=== PATIENT | male | born 1980 | race Two or more races ===

== ENCOUNTER 2021-06-08 12:04 | Emergency (ER) | payer OTHER ==
[~2021-06-08] VITALS: Ht 185.4 cm; Wt 82.0 kg
[2021-06-08 13:11] LABS: BASOPHILS % 0.5 % (0.0-2.0); CHLORIDE 112 mEq/L (98-107); EOSINOPHILS % 0.7 % (0.0-5.0); HEMATOCRIT. 42.9 % (42.0-52.0); HEMOGLOBIN. 14.9 g/dL (14.0-18.0); LYMPHOCYTES % 12.8 % (20.0-50.0); MEAN CORPUSCULAR HEMOGLOBIN 31.8 pg (28.0-32.0); MEAN CORPUSCULAR VOLUME 91.3 fL (80.0-94.0); MEAN PLATELET VOLUME 7.6 fl (7.4-10.4); MONOCYTES % 6.2 % (2.0-8.0); NEUTROPHILS % 79.8 % (40.0-76.0); PLATELET 226 x1000/uL (130-400); RED CELL DISTRIBUTION WIDTH 13.3 % (11.6-14.6)
[2021-06-08 13:17] LABS: ETHANOL BLOOD < 10 mg/dL
[2021-06-08 15:00] VITALS: BP 119/58
== END 2021-06-08 15:45 | disposition home or self-care (01) ==
LOC: ER 12:04
DX: R55 Syncope and collapse (principal); R56.9 Unspecified convulsions; F19.10 Other psychoactive substance abuse, uncomplicated
CPT/HCPCS: 36415; 80053; 80307; 80320; 80329; 85025; 93005; 99284; G0480

== ENCOUNTER 2021-09-04 04:17 | Emergency (ER) | payer MEDICAID, OTHER ==
[~2021-09-04] VITALS: Ht 190.5 cm; Wt 78.0 kg
[2021-09-04 05:30] LABS: BASOPHILS % 0.9 % (0.0-2.0); EOSINOPHILS % 1.4 % (0.0-5.0); HEMATOCRIT. 42.9 % (42.0-52.0); HEMOGLOBIN. 14.8 g/dL (14.0-18.0); LYMPHOCYTES % 30.7 % (20.0-50.0); MEAN CORPUSCULAR HEMOGLOBIN 31.2 pg (28.0-32.0); MEAN PLATELET VOLUME 7.8 fl (7.4-10.4); MONOCYTES % 7.1 % (2.0-8.0); NEUTROPHILS % 59.9 % (40.0-76.0); PLATELET 230 x1000/uL (130-400); RED BLOOD CELL COUNT 4.76 mill/uL (4.7-6.1); RED CELL DISTRIBUTION WIDTH 13.1 % (11.6-14.6)
[2021-09-04 05:39] LABS: CHLORIDE 108 mEq/L (98-107)
[2021-09-04 05:42] VITALS: BP 119/75
[2021-09-04 05:43] LABS: ETHANOL BLOOD < 10 mg/dL
[2021-09-04] MEDS ORDERED: NALO4SPR BOTHNSTRLS (05:50)
== END 2021-09-04 07:38 | disposition home or self-care (01) ==
LOC: ER 04:17
DX: T43.621A Poisoning by amphetamines, accidental (unintentional), initial encounter (principal); R53.83 Other fatigue; F15.10 Other stimulant abuse, uncomplicated; F12.10 Cannabis abuse, uncomplicated; Y92.89 Other specified places as the place of occurrence of the external cause
CPT/HCPCS: 36415; 80053; 80307; 80320; 80329; 82140; 82962; 84443; 85025; 93005; 99283; G0480

== ENCOUNTER 2021-12-05 22:25 | Emergency (ER) | payer MEDICAID, OTHER ==
[~2021-12-05] VITALS: Ht 182.9 cm; Wt 82.0 kg
[~2021-12-05 22:25] MED LIST: NALO4SPR BOTHNSTRLS
[2021-12-05 22:27] VITALS: BP 115/56
[2021-12-06 00:20] LABS: BASOPHILS % 0.5 % (0.0-2.0); EOSINOPHILS % 0.8 % (0.0-5.0); HEMATOCRIT. 44.8 % (42.0-52.0); HEMOGLOBIN. 15.5 g/dL (14.0-18.0); LYMPHOCYTES % 16.5 % (20.0-50.0); MEAN CORPUSCULAR HEMOGLOBIN 31.5 pg (28.0-32.0); MEAN CORPUSCULAR VOLUME 91.3 fL (80.0-94.0); MEAN PLATELET VOLUME 7.5 fl (7.4-10.4); MONOCYTES % 6.9 % (2.0-8.0); NEUTROPHILS % 75.3 % (40.0-76.0); PLATELET 235 x1000/uL (130-400); RED BLOOD CELL COUNT 4.91 mill/uL (4.7-6.1); RED CELL DISTRIBUTION WIDTH 12.7 % (11.6-14.6)
[2021-12-06 00:29] LABS: CHLORIDE 107 mEq/L (98-107)
[2021-12-06 00:33] LABS: ETHANOL BLOOD < 10 mg/dL
== END 2021-12-06 02:34 | disposition left against medical advice (07) ==
LOC: ER 22:25
DX: S09.8XXA Other specified injuries of head, initial encounter (principal); R94.31 Abnormal electrocardiogram [ECG] [EKG]; F15.90 Other stimulant use, unspecified, uncomplicated; X58.XXXA Exposure to other specified factors, initial encounter; Y93.9 Activity, unspecified; Y92.480 Sidewalk as the place of occurrence of the external cause
CPT/HCPCS: 36415; 80053; 80320; 85025; 93005; 99285; G0480

== ENCOUNTER 2023-05-02 08:26 | Emergency (ER) | payer MEDICAID, OTHER ==
[~2023-05-02] VITALS: Ht 182.9 cm; Wt 68.5 kg
[2023-05-02 08:28] VITALS: TEMP 98; O2SAT 97
[2023-05-02] MEDS ORDERED: zoloft (08:35)
[2023-05-02 12:06] VITALS: BP 112/79; PULSE 65; RESP 15
== END 2023-05-02 12:08 | disposition home or self-care (01) ==
LOC: ER 08:26
DX: F19.10 Other psychoactive substance abuse, uncomplicated (principal)
CPT/HCPCS: 99283

== ENCOUNTER 2023-05-30 22:37 | Emergency (ER) | payer MEDICAID ==
[~2023-05-30] VITALS: Ht 188 cm; Wt 82.0 kg
[~2023-05-30 22:37] MED LIST changes: +zoloft
[2023-05-30 22:44] VITALS: O2SAT 99
[2023-05-31 03:00] VITALS: BP 108/60; PULSE 67; RESP 20; TEMP 98.3
== END 2023-05-31 03:01 | disposition home or self-care (01) ==
LOC: ER 22:37
DX: T40.601A Poisoning by unspecified narcotics, accidental (unintentional), initial encounter (principal); F11.90 Opioid use, unspecified, uncomplicated; F41.9 Anxiety disorder, unspecified; Y92.89 Other specified places as the place of occurrence of the external cause
CPT/HCPCS: 99283